=== PATIENT | male | born 1965 | race Caucasian/White ===

== ENCOUNTER 2019-08-18 00:07 | Emergency (ER) | payer BC ==
[2019-08-18] MEDS ORDERED: Hydrocortisone/Neomycin/Polymyxin B Otic Susp 10 ML Bottle EARLF ONE (02:32)
--- NOTE | 2019-08-18 02:42 | EDM.PDOC ---
ED HPI GENERAL MEDICAL PROBLEM - General Chief Complaint: ENT Problem Stated Complaint: SLEEPING AND SOMETHING FLEW IN EAR Time Seen by Provider: 08/18/19 00:14 Source of Information: Reports: Patient History Limitations: Reports: No Limitations - History of Present Illness INITIAL COMMENTS - FREE TEXT/NARRATIVE: TRIAGE NOTE -- patient thinks something flew into in left ear [ End ] About 2 hours prior to presentation patient had sensation of a live insect in his left ear. No treatment prior to arrival. No risk factors identified. Left Ear Pain Score (Numeric/FACES): 2 - Related Data Allergies Allergy/AdvReac Type Severity Reaction Status Date / Time No Known Allergies Allergy Verified 08/18/19 00:33 Home Meds: Home Meds . [No Known Home Meds] 08/18/19 [History] Past Medical History - Past Health History Medical/Surgical History: Denies Medical/Surgical History Social & Family History - Tobacco Use Smoking Status *Q: Unknown Ever Smoked ED ROS ENT - Review of Systems Review Of Systems: Comprehensive ROS is negative, except as noted in HPI. ED EXAM, ENT - Physical Exam Exam: See Below Exam Limited By: No Limitations General Appearance: Alert, WD/WN, No Apparent Distress Eye Exam: Bilateral Eye: EOMI, PERRL Ears: Other (Live insect in left ear canal) Nose: Normal Inspection Mouth/Throat: Normal Inspection Head: Atraumatic, Normocephalic Neck: Normal Inspection, Supple Respiratory/Chest: No Respiratory Distress, Lungs Clear Cardiovascular: Regular Rate, Rhythm GI/Abdominal: Soft, Non-Tender Back: Normal Inspection Extremities: Normal Inspection, Non-Tender Neurological: Alert, Oriented, Normal Cognition, No Motor/Sensory Deficits Psychiatric: Normal Affect Skin: Warm, Dry Course - Vital Signs Last Recorded V/S: Last Vital Signs Temp 36.2 C 08/18/19 00:31 Pulse 92 08/18/19 00:31 Resp 16 08/18/19 00:31 BP 125/80 08/18/19 00:31 Pulse Ox 96 08/18/19 00:31 - Orders/Labs/Meds Meds: Medications Discontinued Medications Generic Name Dose Route Start Last Admin Trade Name Freq PRN Reason Stop Dose Admin Neomycin/Polymyxin/Hydrocortisone 2 ml 08/18/19 02:32 Cortisporin Otic Susp EARLF 08/18/19 02:33 ONETIME ONE - Re-Assessments/Exams Free Text/Narrative Re-Assessment/Exam: 08/18/19 02:38 Live insect was seen in the left ear canal. Was no instrument that could be deployed that would allow us to grab the insect. Did not have a small enough forceps to go through speculum. After I made a couple of attempts to wash the insect out nursing staff took over and after an excellent effort managed to wash the insect out intact. Ear canal inspected afterwards. There was some redness as expected proximally, that is close to the eardrum. Eardrum intact and normal-appearing. Other than some irritation the removal of the live insect was done otherwise atraumatically. Eardrops to be used in the ER and for only a couple of days. See instructions to patient. Departure - Departure Time of Disposition: 02:42 Disposition: Home, Self-Care 01 Condition: Good Clinical Impression: Acute foreign body of ear canal Qualifiers: Encounter type: initial encounter Laterality: left Qualified Code(s): T16.2XXA - Foreign body in left ear, initial encounter - Discharge Information *PRESCRIPTION DRUG MONITORING PROGRAM REVIEWED*: Not Applicable *COPY OF PRESCRIPTION DRUG MONITORING REPORT IN PATIENT DANIELLE: Not Applicable Referrals: PCP,None [Primary Care Provider] - Additional Instructions: You have been seen for a live insect which had gotten into your left ear canal. The insect was able to be removed intact. There is some irritation as expected of the ear canal. We have given you some drops for this. Use them 3- 4 times a day for no more than 3 days. For any ear pain fever or any other symptom of illness or lack of resolution of discomfort in your left ear return to the ER immediately. Recommend follow-up by your primary. Referrals have been made. Sepsis Event Note - Evaluation Sepsis Screening Result: No Definite Risk - Focused Exam Vital Signs: Vital Signs Temp Pulse Resp BP Pulse Ox 08/18/19 00:31 36.2 C 92 16 125/80 96 Date Exam was Performed: 08/18/19 Time Exam was Performed: 02:36
== END 2019-08-18 02:50 | disposition home or self-care (01) ==
LOC: JD.ED 00:07
DX: T16.2XXA Foreign body in left ear, initial encounter (principal)
CPT/HCPCS: 99282; A9270

== ENCOUNTER → 2019-09-08 | Day surgery (SDC) | payer BC ==
[~2019-09-08] MED LIST: Lactated Ringers 1,000 ML IV SCH; Lidocaine 1% 6 ML ONE; Lidocaine 1%/Sod Bicarbonate in NS 8.4% 1 ML Syringe IDERM PRN; Propofol 200 MG/20 ML SDV ONE; Sodium Chloride 0.9% 10 ML Syringe FLUSH PRN; fentaNYL 100 MCG/2 ML SDV ONE
--- NOTE | 2019-09-08 08:45 | PCM.PREANE ---
<Jania James - Last Filed: 09/08/19 08:42> Preanesthetic Assessment - Procedure Proposed Procedure: Colonoscopy (Screening) - Anesthesia/Transfusion/Family Hx Anesthesia History: Prior Anesthesia Without Reaction Family History of Anesthesia Reaction: No Transfusion History: No Prior Transfusion(s) Intubation History: Unknown - Review of Systems Pulmonary: No Symptoms (Smoker:less than 1ppd times 5 years) - Allergies Allergies/Adverse Reactions: Allergies Allergy/AdvReac Type Severity Reaction Status Date / Time No Known Allergies Allergy Verified 09/05/19 13:07 PreAnesthesia Questionnaire - Past Health History Medical/Surgical History: Denies Medical/Surgical History HEENT History: Reports: Impaired Vision, Other (See Below) Other HEENT History: wears glasses Cardiovascular History: Reports: None Respiratory History: Reports: None Gastrointestinal History: Reports: Other (See Below) Other Gastrointestinal History: blood in stool Genitourinary History: Reports: Other (See Below) Other Genitourinary History: hematuria 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: 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: None Musculoskeletal History: Reports: Other (See Below) Other Musculoskeletal History: left foot ganglion cyst Neurological History: Reports: None Psychiatric History: Reports: None Endocrine/Metabolic History: Reports: Other (See Below) Other Endocrine/Metabolic History: abnormal TSH Hematologic History: Reports: None Immunologic History: Reports: None Oncologic (Cancer) History: Reports: None Dermatologic History: Reports: Other (See Below) Other Dermatologic History: cyst removal - Past Surgical History Head Surgeries/Procedures: Reports: None HEENT Surgical History: Reports: Naso-Sinus Surgery Cardiovascular Surgical History: Reports: None Respiratory Surgical History: Reports: Pleurodesis GI Surgical History: Reports: None Endocrine Surgical History: Reports: None Neurological Surgical History: Reports: None Musculoskeletal Surgical History: Reports: None Oncologic Surgical History: Reports: None - SUBSTANCE USE Smoking Status *Q: Never Smoker Recreational Drug Use History: No - HOME MEDS Home Medications: Home Meds Cranberry 500 mg PO DAILY 09/05/19 [History] Danica Root 550 mg PO DAILY 09/05/19 [History] Vitamin E 400 unit PO DAILY 09/05/19 [History] <Naman Castro - Last Filed: 09/08/19 10:20> Preanesthetic Assessment - Anesthesia/Transfusion/Family Hx Anesthesia History: Prior Anesthesia Without Reaction Transfusion History: No Prior Transfusion(s) - Review of Systems General: No Symptoms Pulmonary: No Symptoms Cardiovascular: No Symptoms Gastrointestinal: No Symptoms Neurological: No Symptoms Other: Reports: Thyroid Problems (abnormal TSH) - Physical Assessment NPO Status Date: 09/07/19 NPO Status Time: 21:00 Vital Signs: Last Vital Signs Temp 97.1 F 09/08/19 08:55 Pulse 82 09/08/19 08:55 Resp 16 09/08/19 08:55 BP 132/79 09/08/19 08:55 Pulse Ox 96 09/08/19 08:55 ASA Class: 1 Mental Status: Alert & Oriented x3 Airway Class: Mallampati = 1 Dentition: Reports: Normal Dentition, Implants (upper front) Thyro-Mental Finger Breadths: 3 Mouth Opening Finger Breadths: 3 ROM/Head Extension: Full Lungs: Clear to Auscultation, Normal Respiratory Effort Cardiovascular: Regular Rate, Regular Rhythm - Acknowledgements Anesthesia Type Planned: MAC Pt an Appropriate Candidate for the Planned Anesthesia: Yes Alternatives and Risks of Anesthesia Discussed w Pt/Guardian: Yes Pt/Guardian Understands and Agrees with Anesthesia Plan: Yes PreAnesthesia Questionnaire - CURRENT (IN HOUSE) MEDS Current Meds: Current Medications Lactated Ringer's (Ringers, Lactated) 1,000 mls @ 125 mls/hr IV ASDIRECTED XIANG Stop: 09/08/19 23:00 Last Admin: 09/08/19 09:05 Dose: 125 mls/hr Documented by: Lidocaine/Sodium Bicarbonate (Buffered Lidocaine 1% In Ns 8.4%) 0.25 ml IDERM ONETIME PRN PRN Reason: Prior to IV Start Stop: 09/08/19 18:00 Sodium Chloride (Saline Flush) 10 ml FLUSH ASDIRECTED PRN PRN Reason: Keep Vein Open Stop: 09/08/19 18:00 Discontinued Medications Fentanyl (Sublimaze) Confirm Administered Dose 100 mcg .ROUTE .STK-MED ONE Stop: 09/08/19 07:31 Lidocaine HCl (Xylocaine-Mpf 1%) Confirm Administered Dose 6 mls @ as directed .ROUTE .STK-MED ONE Stop: 09/08/19 07:31 Propofol (Diprivan 20 Ml) Confirm Administered Dose 200 mg .ROUTE .STK-MED ONE Stop: 09/08/19 07:31
--- NOTE | 2019-09-08 11:10 | PCM.PRNOTE ---
- Free Text/Narrative Note: Date: 09/08/2019 Procedure: screening colonoscopy Endoscopist: Pelon Wiggins MD Findings: Ileocecal valve visualized. Prep was excellent. Detailed Report: The patient was taken to the endoscopy suite and placed in left lateral decubitus position. Time out was performed and monitored anesthesia care was initiated. The anus appeared normal. Digital rectal exam was unremarkable. The lubricated colonoscope was then inserted and advanced all the way to the cecum. The ileocecal valve and appendiceal orifice were visualized. The prep was noted to be excellent. On slow withdrawal of the scope, mucosal surfaces were carefully inspected. No polyps noted. No diverticular disease. No abnormality noted on retroflexion within the rectum. The patient tolerated the procedure well. Pelon Wiggins MD General Surgery
--- NOTE | 2019-09-08 11:15 | PCM48HPAN ---
Post Anesthesia Note - EVALUATION WITHIN 48HRS OF ANESTHETIC Vital Signs in Normal Range: Yes Patient Participated in Evaluation: Yes Respiratory Function Stable: Yes Airway Patent: Yes Cardiovascular Function Stable: Yes Hydration Status Stable: Yes Pain Control Satisfactory: Yes Nausea and Vomiting Control Satisfactory: Yes Mental Status Recovered: Yes Vital Signs: Last Vital Signs Temp 36.2 C 09/08/19 08:55 Pulse 82 09/08/19 08:55 Resp 16 09/08/19 08:55 BP 132/79 09/08/19 08:55 Pulse Ox 96 09/08/19 08:55
== END | disposition home or self-care (01) ==
LOC: JD.SDS 08:47
PROVIDERS: ATTEND Surgery
DX: Z12.11 Encounter for screening for malignant neoplasm of colon (principal); F17.210 Nicotine dependence, cigarettes, uncomplicated
CPT/HCPCS: 45378; J2001; J2704; J3010; J7120